=== PATIENT | female | born 1960 ===

== ENCOUNTER 2024-02-01 12:31 | Outpatient (AMB) | payer OTHER, SELFPAY ==
--- NOTE | 2024-02-01 12:52 | HO.SPINEOV ---
Intake Visit Reasons: consult for possible SI joint Fusion Intake Note: Ms. Mark Silva is here today c/o Low back pain that radiates down both legs with swelling. Liaison Planner Required: No Allergies diphenhydramine [From Benadryl] Allergy (Severe, Verified 02/01/24 13:04) Vomiting ibuprofen Allergy (Severe, Verified 02/01/24 13:04) Hives indomethacin [From Indocin] Allergy (Severe, Verified 02/01/24 13:04) Palpitations Penicillins Allergy (Severe, Verified 02/01/24 13:04) Hives Sulfa (Sulfonamide Antibiotics) Allergy (Severe, Verified 02/01/24 13:04) Rash theophylline Allergy (Severe, Verified 02/01/24 13:04) Rash Assessment & Plan Assessment & Plan (1) Lumbar radiculopathy: Code(s): M54.16 - Radiculopathy, lumbar region Category: Medical Plan Dear Dr Parkinson Thank you for referring Mrs Mark Silva to our office today. This is a 64-year-old female who has had intermittent back issues for years and his in the past been to pain management centers for injections who presents today with an acute issue which started on November 04 when she was admitted to the emergency room at [facility] for what were stroke-like symptoms. She apparently had facial droop and some weakness of her arm and was evaluated there, a stroke protocol was put in place. No acute findings on the CT scan. She had a history of Thebes Carlisle syndrome and Neurology recommended a spinal tap for possible viral etiology. She underwent the lumbar puncture, and on the 3rd attempt to get spinal fluid she felt intense pressure in her back and then an extremely intense burning pain going down her right leg. It was so intense she almost passed out. She was ultimately admitted to the hospital and released after a stroke was ruled out. Unfortunately, ever since that lumbar puncture, the intense pain down her right leg and the back pain has not gone away. She ended up back in the emergency room and an MRI was done just showing chronic changes in her low back. She was seen in your office as well and had a component of SI joint inflammation and with a history of sacroiliitis was sent for consideration of SI joint fusion. However, what the patient presents with today is primarily the complain of the leg pain that happened at the immediate time of the lumbar puncture. Since that time, she has been unable to walk her dog, unable to get out of the house much at all. Sleeping is also very difficult. 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 Social hx: She does not smoke drink use any recreational drugs Medications: Albuterol, Colace, Neurontin, duloxetine, fluticasone, levothyroxine, lorazepam, omeprazole, put Dee tied, polyethylene glycol, trazodone, valacyclovir Allergies: Please see the [employer] list Physical exam: On exam, she is uncomfortable, she is sitting on her left side to avoid pressure on her right buttock. She does have some pain along the in tenderness along the SI joint region. She has positive straight leg raise at about 20-30 degrees. This will give her pain and tingling up the back of her leg. She has possibly some slight weakness of the right dorsiflexion I would rate this as 4+ out of 5. Reflexes are intact. Imaging review: Lumbar MRI done at [facility] a few days after the spinal tap shows that she has mild disc degeneration at L4-5, more significant collapse at L5-S1 with Modic endplate changes. I do not see any specific nerve root compression. I see no signs of hematoma or enlargement of the nerve root. Impression: 64-year-old female presents with on and off issues with chronic back pain from time to time, who had a lumbar puncture done for evaluation of acute onset of facial droop and weakness and had what sounds like an acute inflammation of the nerve at the time of the spinal tap. She may have a little bit of weakness in her foot. She has having a terrible time being unable to walk for the last 3 months since that happened. Her presentation does not seem consistent with SI joint inflammation as it occurred exactly at the time of the lumbar puncture, but she may have a chronic component of this as she does have some tenderness over that area. Her MRI just shows some degenerative changes. I am wondering if the needle may have passed by the nerve or injured it somehow. She is already on gabapentin and that does not seem to be helping much. I am wondering if she should have a trial of steroids to see if this can get the nerve to calm down a little bit. Maybe she will need a local transforaminal block or an epidural. I am not sure she would agree to have this done given the results from the spinal tap experience. Thank you for allowing us to care for your patient. The total time spent with this visit with this patient was 45 minutes reviewing history, physical exam, lumbar imaging review, and implementation of treatment plan or further diagnostic testing Gage España MD,PhD [facility] Coding Level of Care Code New Pt Level 4 (23589) Diagnoses Lumbar radiculopathy M54.16
== END 2024-02-01 13:34 | disposition home or self-care (01) ==
PROVIDERS: PCP Internal Medicine; Referring Provider Neurological Surgery; Visit Provider Physician Assistant
DX: M54.16 Radiculopathy, lumbar region (principal)
CPT/HCPCS: 99204

== ENCOUNTER → 2024-02-01 12:31 | Outpatient (BNVA) | payer OTHER, SELFPAY | PROVIDERS: PCP Internal Medicine; Visit Provider Physician Assistant | DX: M54.16 Radiculopathy, lumbar region (principal) | CPT/HCPCS: 99202 ==